=== PATIENT | female | born 1930 | race Caucasian/White ===

== ENCOUNTER 2018-04-08 19:32 | Emergency (ER) | payer MEDICARE ==
[~2018-04-08] VITALS: Ht 147.3 cm; Wt 40.4 kg
[2018-04-08 19:44] VITALS: BP 186/107
--- NOTE | 2018-04-08 19:51 | NUR ---
PT AMBULATORY TO WR W/ FAMILY ASSISTANCE IN STABLE CONDITION. ELECTROMYOGRAPHIC TECHNICIAN, JUDIE NOTIFIED; CORRIE TORRES NOTIFIED OF PATIENT'S BP AND INJURY AND REQUESTED AN IMMEDIATE BED PLACEMENT.
--- NOTE | 2018-04-08 19:55 | NUR ---
PT TO CT AT THIS TIME.
--- NOTE | 2018-04-08 20:05 | NUR ---
BIB WHEELCHAIR FROM CT SCAN TO ER BED 10
--- NOTE | 2018-04-08 20:05 | NUR ---
FALL RISK IMPLEMENTED. FALL RISK BAND ON WRIST. BED RAILS UP X 2. PT TOLERATED WELL. MD NOTIFED.
--- NOTE | 2018-04-08 20:05 | NUR ---
COMFORT MEASURES OFFERED TO PT. ICE PACK WAS PLACED IN THE BACK OF HER HEAD FOR PAIN. PT TOLERATED WELL. MADE AWARE.
--- NOTE | 2018-04-08 20:05 | NUR ---
PT PRESENTED ER WITH C/O PAIN TO THE BACK OF HEAD POST FALL. BIB FAMILY. PT IS A/O X 2. SHE HAS HX OF DEMENTIA. PT FELL THISA MORNING AND THEN FALL AGAIN THIS AFTERNOON. PT IS HAVING SOME PAIN IN THE ARM AND LEFT SHOULDER. PT HAS A HEMATOMA TO THE BACK OF HEAD. 5/10 PAIN LEVEL. PT AT TIMES FEELS DIZZY WHEN SHE GETS UP. ALLERGIES TO CODEINE. FAMILY AT BEDSIDE. BEDRAILS X 2 UP AND CURTAIN CLOSED. MD MADE AWARE OF STATUS. VSS. Addendum: 04/08/18 at 2052 by [facility] PT PRESENTED ER WITH C/O PAIN TO THE BACK OF HEAD POST FALL. BIB FAMILY. PT IS A/O X 2. SHE HAS HX OF DEMENTIA. PT FELL THISA MORNING AND THEN FALL AGAIN THIS AFTERNOON. PT IS HAVING SOME PAIN IN THE ARM AND LEFT SHOULDER. PT HAS A HEMATOMA TO THE BACK OF HEAD.EYES PERRLA. PT AT TIMES FEELS DIZZY WHEN SHE GETS UP. ALLERGIES TO CODEINE. FAMILY AT BEDSIDE. BEDRAILS X 2 UP AND CURTAIN CLOSED. MADE AWARE OF STATUS. VSS.
--- NOTE | 2018-04-08 20:30 | NUR ---
PT STATED NO N/V AND NO LOSS OF CONSIOUSNESS WHEN SHE FELL. FAMILY WAS THERE AT HER SIDE POST STATUS FALL. MD MADE AWARE.
[2018-04-08 22:23] VITALS: BP 135/75
--- NOTE | 2018-04-08 22:24 | NUR ---
Patient discharged with v/s stable. Written and verbal after care instructions given and explained. Patient alert, oriented and verbalized understanding of instructions. Ambulatory with steady gait. All questions addressed prior to discharge. ID band removed. Patient advised to follow up with PMD. Rx of CIPROFLOXACIN AND MOTRIN given. Patient educated on indication of medication including possible reaction and side effects. Opportunity to ask questions provided and answered.
== END 2018-04-08 22:23 | disposition home or self-care (01) ==
LOC: MED 19:32
DX: S00.03XA Contusion of scalp, initial encounter (principal); N39.0 Urinary tract infection, site not specified; F03.90 Unspecified dementia, unspecified severity, without behavioral disturbance, psychotic disturbance, mood disturbance, and anxiety; Z88.5 Allergy status to narcotic agent; W18.39XA Other fall on same level, initial encounter; Y93.89 Activity, other specified; Y92.89 Other specified places as the place of occurrence of the external cause; Y99.8 Other external cause status
CPT/HCPCS: 70450; 81002; 99284